=== PATIENT | male | born 1995 | race Asian ===

== ENCOUNTER 2023-11-12 22:38 | Emergency (ER) | payer SELFPAY ==
[~2023-11-12] VITALS: Ht 175.3 cm; Wt 83.9 kg
[2023-11-13 01:02] VITALS: BP 156/98; TEMP 98.5; O2SAT 97
== END 2023-11-13 01:02 | disposition home or self-care (01) ==
LOC: ER 22:46
DX: S93.401A Sprain of unspecified ligament of right ankle, initial encounter (principal); X58.XXXA Exposure to other specified factors, initial encounter; Y93.89 Activity, other specified; Y92.89 Other specified places as the place of occurrence of the external cause; Y99.8 Other external cause status
CPT/HCPCS: 73700-TC